=== PATIENT | male | born 1980 | race African-American/Black ===

== ENCOUNTER 2021-03-27 19:16 | Day surgery (SDCO) | payer MEDICARE, OTHER ==
[~2021-03-27] VITALS: Ht 175.3 cm; Wt 121.4 kg
[2021-03-27 19:41] LABS: BASOPHIL 0.2 % (0-2); EOSINOPHIL 0.9 % (0-5); HCT 39.1 % (42.0-52.0); HGB 12.6 g/dl (13.2-18.0); LYMPHOCYTE 33.1 % (15-48); MCH 22.7 pg (25.0-31.0); MCHC 32.2 g/dL (32.0-36.0); MCV 70.3 fL (78.0-100.0); MONOCYTE 7.7 % (0-12); MPV 10.5 fL (6.0-9.5); NEUTROPHIL 57.9 % (41-80); NRBC 0; PLT 222 K/uL (150-400); RBC 5.56 M/uL (4.70-6.00); RDW 15.9 % (11.5-14.0); WBC 8.7 K/uL (4.0-10.5)
[2021-03-27 19:49] LABS: INR 1.15 (0.9-1.2); PTT 31.8 SECONDS (22.2-34.7)
[2021-03-27 19:51] LABS: D-DIMER 0.37 ug/mLFEU (0.00-0.41)
[2021-03-27 20:05] LABS: CREATININE 1.28 mg/dL (0.67-1.17)
[2021-03-27 20:06] LABS: ALBUMIN 3.8 g/dL (3.4-5.0); BILIRUBIN - TOTAL 0.3 mg/dL (0.2-1.0); GLOBULIN (CALCULATION) 3.5 g/dL; TOTAL PROTEIN 7.3 g/dL (6.4-8.2)
[2021-03-28] MEDS ORDERED: NICORETTE4 MG PO (00:23)
[2021-03-28] MEDS ORDERED: SAPHRIS5 MG PO (00:26)
[2021-03-28] MEDS ORDERED: BUSPAR5 MG PO (00:29)
[2021-03-28] MEDS ORDERED: ROCKLATAN 0.022.5 ML OU (00:32)
[2021-03-28] MEDS ORDERED: THEOPHYLLINE400 MG PO (00:33)
[2021-03-28] MEDS ORDERED: ATARAX25 MG PO ×2 (00:34→00:35)
[2021-03-28] MEDS ORDERED: PRILOSEC20 MG PO (00:34)
[2021-03-28] MEDS ORDERED: PEPCID AC20 MG PO (00:34)
[2021-03-28 06:10] LABS: BASOPHIL 0.3 % (0-2); EOSINOPHIL 2.1 % (0-5); HCT 38.9 % (42.0-52.0); HGB 12.5 g/dl (13.2-18.0); LYMPHOCYTE 36.1 % (15-48); MCH 22.7 pg (25.0-31.0); MCHC 32.1 g/dL (32.0-36.0); MCV 70.6 fL (78.0-100.0); MONOCYTE 8.3 % (0-12); MPV 11.5 fL (6.0-9.5); NEUTROPHIL 53.1 % (41-80); NRBC 0; PLT 219 K/uL (150-400); RBC 5.51 M/uL (4.70-6.00); RDW 15.7 % (11.5-14.0); WBC 7.1 K/uL (4.0-10.5)
[2021-03-28 09:46] LABS: CREATININE 1.26 mg/dL (0.67-1.17); POTASSIUM 4.3 mmol/L (3.5-5.1)
== END 2021-03-28 11:34 | disposition home or self-care (01) ==
LOC: FER 19:16 → FMS 22:21
PROVIDERS: Emergency Medicine Emergency Medical Services; Nurse Practitioner; ADMIT Internal Medicine
DX: R00.1 Bradycardia, unspecified (principal); R07.89 Other chest pain; R55 Syncope and collapse; F41.1 Generalized anxiety disorder; F32.9 Major depressive disorder, single episode, unspecified; F17.210 Nicotine dependence, cigarettes, uncomplicated; Z86.16 Personal history of COVID-19; Z88.6 Allergy status to analgesic agent; Z79.899 Other long term (current) drug therapy; Z20.822 Contact with and (suspected) exposure to COVID-19
CPT/HCPCS: 36415; 71045; 80048; 80053; 80061; 83690; 84439; 84443; 84484; 85025; 85379; 85610; 85730; 93005; G0378; J1650; J2270; J2405; J7030; U0002

== ENCOUNTER 2021-05-21 16:15 | Emergency (ER) | payer MEDICARE, OTHER ==
[~2021-05-21 16:15] MED LIST: ATARAX25 MG PO; BUSPAR5 MG PO; NICORETTE4 MG PO; PEPCID AC20 MG PO; PRILOSEC20 MG PO; ROCKLATAN 0.022.5 ML OU; SAPHRIS5 MG PO; THEOPHYLLINE400 MG PO
[2021-05-21] MEDS ORDERED: PROAIR HFA8.5 GM INH (21:32)
[2021-05-21] MEDS ORDERED: PREDNISONE 20MG20 MG PO (21:32)
== END 2021-05-21 21:45 | disposition home or self-care (01) ==
LOC: FER 16:15
DX: J45.901 Unspecified asthma with (acute) exacerbation (principal); F17.210 Nicotine dependence, cigarettes, uncomplicated; Z88.6 Allergy status to analgesic agent; Z20.822 Contact with and (suspected) exposure to COVID-19
CPT/HCPCS: 71046; U0002

== ENCOUNTER 2022-02-11 14:57 | Emergency (ER) | payer MEDICARE, OTHER ==
[~2022-02-11 14:57] MED LIST changes: +PREDNISONE 20MG20 MG PO; +PROAIR HFA8.5 GM INH
[2022-02-11 18:08] LABS: BASOPHIL 0.3 % (0-2); EOSINOPHIL 1.1 % (0-5); HCT 40.6 % (42.0-52.0); HGB 12.9 g/dl (13.2-18.0); LYMPHOCYTE 28.8 % (15-48); MCH 22.2 pg (25.0-31.0); MCHC 31.8 g/dL (32.0-36.0); MONOCYTE 7.3 % (0-12); MPV 10.8 fL (6.0-9.5); NEUTROPHIL 62.3 % (41-80); NRBC 0; PLT 227 K/uL (150-400); RDW 14.9 % (11.5-14.0); WBC 9.5 K/uL (4.0-10.5)
[2022-02-11 18:24] LABS: ALBUMIN 3.7 g/dL (3.4-5.0); BILIRUBIN - TOTAL 0.3 mg/dL (0.2-1.0); BUN/CREAT RATIO (CALC) 9.4 RATIO; CREATININE 1.27 mg/dL (0.67-1.17); GLOBULIN (CALCULATION) 3.6 g/dL; TOTAL PROTEIN 7.3 g/dL (6.4-8.2)
[2022-02-11 18:51] LABS: BILIRUBIN NEGATIVE (NEGATIVE); BLOOD NEGATIVE Ery/uL (NEGATIVE); CLARITY CLEAR (CLEAR); COLOR YELLOW (YELLOW); GLUCOSE (U) NORMAL (NORMAL); LEUKOCYTES NEGATIVE Leu/uL (NEGATIVE); NITRITE NEGATIVE (NEGATIVE); PROTEIN NEGATIVE (NEGATIVE); pH 6.5 (5.0-9.0)
[2022-02-11] MEDS ORDERED: ONDANSETRON ODT4 MG PO (21:27)
== END 2022-02-11 21:57 | disposition home or self-care (01) ==
LOC: FER 14:57
PROVIDERS: Nurse Practitioner Family
DX: R11.2 Nausea with vomiting, unspecified (principal); R10.30 Lower abdominal pain, unspecified
CPT/HCPCS: 36415; 80053; 81003; 83690; 85025; J2405; J7030; Q9967

== ENCOUNTER 2022-02-19 11:08 | Emergency (ER) | payer MEDICARE, OTHER ==
[~2022-02-19 11:08] MED LIST changes: +ONDANSETRON ODT4 MG PO
[2022-02-19 12:42] LABS: BASOPHIL 0.5 % (0-2); HCT 42.8 % (42.0-52.0); HGB 13.5 g/dl (13.2-18.0); LYMPHOCYTE 22.9 % (15-48); MCH 22.4 pg (25.0-31.0); MCHC 31.5 g/dL (32.0-36.0); MCV 70.9 fL (78.0-100.0); MONOCYTE 7.9 % (0-12); MPV 11.7 fL (6.0-9.5); NEUTROPHIL 67.3 % (41-80); NRBC 0; PLT 262 K/uL (150-400); RBC 6.04 M/uL (4.70-6.00); RDW 15.5 % (11.5-14.0); WBC 8.2 K/uL (4.0-10.5)
[2022-02-19 12:54] LABS: ALBUMIN 4.2 g/dL (3.4-5.0); BILIRUBIN - TOTAL 0.3 mg/dL (0.2-1.0); BUN/CREAT RATIO (CALC) 5.9 RATIO; CREATININE 1.19 mg/dL (0.67-1.17); GLOBULIN (CALCULATION) 3.4 g/dL; MAGNESIUM 1.9 mg/dL (1.8-2.4); POTASSIUM 3.9 mmol/L (3.5-5.1); TOTAL PROTEIN 7.6 g/dL (6.4-8.2)
== END 2022-02-19 15:40 | disposition home or self-care (01) ==
LOC: FER 11:08
PROVIDERS: Emergency Medicine
DX: R07.89 Other chest pain (principal); E03.9 Hypothyroidism, unspecified; F17.210 Nicotine dependence, cigarettes, uncomplicated; Z88.6 Allergy status to analgesic agent
CPT/HCPCS: 36415; 80053; 83735; 84439; 84443; 84484; 85025; 85379; 93005

== ENCOUNTER 2022-06-27 09:18 | Emergency (ER) | payer MEDICARE, OTHER ==
[2022-06-27 10:23] LABS: BASOPHIL 0.2 % (0-2); EOSINOPHIL 0.5 % (0-5); LYMPHOCYTE 15.6 % (15-48); MCH 22.8 pg (25.0-31.0); MCHC 31.7 g/dL (32.0-36.0); MCV 71.8 fL (78.0-100.0); MPV 10.1 fL (6.0-9.5); NEUTROPHIL 76.3 % (41-80); NRBC 0; PLT 237 K/uL (150-400); RBC 5.71 M/uL (4.70-6.00); RDW 15.5 % (11.5-14.0); WBC 10.8 K/uL (4.0-10.5)
[2022-06-27 10:27] LABS: INR 1.11 (0.9-1.2)
[2022-06-27 10:28] LABS: PTT 29.2 SECONDS (24.9-34.6)
[2022-06-27 11:00] LABS: CORONAVIRUS 2019 SARS-COV-2 NEGATIVE (NEGATIVE); INFLUENZA A NAA NEGATIVE (NEGATIVE)
[2022-06-27 11:17] LABS: ALBUMIN 4.2 g/dL (3.4-5.0); ALKALINE PHOSHATASE 85 U/L (46-116); ALT 78 U/L (16-63); AST 69 U/L (15-37); BILIRUBIN - TOTAL 0.5 mg/dL (0.2-1.0); BUN 11 mg/dL (7-18); BUN/CREAT RATIO (CALC) 9.3 RATIO; CHLORIDE 105 mmol/L (98-107); CO2 (BICARBONATE) 26 mmol/L (21-32); CREATININE 1.18 mg/dL (0.67-1.17); GLOBULIN (CALCULATION) 3.4 g/dL; GLUCOSE 100 mg/dL (74-106); POTASSIUM 4.3 mmol/L (3.5-5.1); TOTAL PROTEIN 7.6 g/dL (6.4-8.2)
[2022-06-27 12:37] LABS: AMPHETAMINES NEGATIVE (NEGATIVE); BARBITURATES NEGATIVE (NEGATIVE); ECSTASY (MDMA) NEGATIVE (NEGATIVE); MARIJUANA (THC) NEGATIVE (NEGATIVE); METHADONE NEGATIVE (NEGATIVE); OPIATES NEGATIVE (NEGATIVE); OXYCODONE NEGATIVE (NEGATIVE)
[2022-06-27] MEDS ORDERED: MEDROL 4MG DOSEP4 MG PO (13:55)
[2022-06-27] MEDS ORDERED: VIBRAMYCIN100 MG PO (13:55)
== END 2022-06-27 14:00 | disposition home or self-care (01) ==
LOC: FER 09:18
PROVIDERS: Internal Medicine
DX: J22 Unspecified acute lower respiratory infection (principal); R42 Dizziness and giddiness; F17.210 Nicotine dependence, cigarettes, uncomplicated; Z88.6 Allergy status to analgesic agent; Z20.822 Contact with and (suspected) exposure to COVID-19
CPT/HCPCS: 36415; 71045; 80053; 80305; 84484; 85025; 85379; 85610; 85730; 93005; G0480; J1100; J7120; U0002